=== PATIENT | female | born 2000 | race Caucasian/White ===

== ENCOUNTER 2024-03-04 03:04 | Emergency (ER) | payer MEDICAID ==
[~2024-03-04] VITALS: Ht 162.6 cm; Wt 101.6 kg
[2024-03-04 03:16] VITALS: BP_SYST 127; PULSE 91; RESP 18; TEMP 97.1; O2SAT 97
[2024-03-04] MEDS: KETOROLAC TROMETHAMINE 30 MG VIAL IVP ONE (03:49)
[2024-03-04] MEDS: ONDANSETRON HCL 4 MG/2 ML VIAL IVP ONE (03:50)
[2024-03-04] MEDS: NACL 0.9% 1,000 ML IV ONE ×2 (03:51→04:18)
[2024-03-04 04:18] LABS: BASOPHILS % (AUTO) 0.2 % (0.0-2.0); EOSINOPHILS # (AUTO) 0.1 K/uL (0.0-0.4); HEMATOCRIT 38.1 % (36-48); HEMOGLOBIN 12.9 g/dL (12.0-16.0); LYMPHOCYTES # (AUTO) 1.2 K/uL (1.0-5.5); LYMPHOCYTES % (AUTO) 15.1 % (20.5-51.5); MEAN CORPUSCULAR HEMOGLOBIN 29 pg (27-31); MEAN CORPUSCULAR HGB CONC 34 % (32-36); MEAN CORPUSCULAR VOLUME 85 fL (79.0-98.0); MONOCYTES # (AUTO) 0.6 K/uL (0.0-1.0); MONOCYTES % (AUTO) 6.9 % (1.7-9.3); NEUTROPHILS # (AUTO) 6.2 K/uL (1.8-7.7); NEUTROPHILS % (AUTO) 76.8 % (40.0-70.0); PLATELET COUNT (AUTO) 312 K/uL (130-430); RED BLOOD CELL COUNT(AUTO) 4.51 MIL/uL (4.2-6.2); RED CELL DISTRIBUTION WIDTH 13.4 % (9.0-15.0); WHITE BLOOD COUNT (AUTO) 8.1 K/uL (4.8-10.8)
[2024-03-04 04:22] LABS: BILIRUBIN,URINE 1+ (NEGATIVE); COLOR,URINE YELLOW (YELLOW); GLUCOSE,URINE NEGATIVE (NEGATIVE); KETONES,URINE NEGATIVE (NEGATIVE); LEUKOCYTE ESTERASE ,URINE TRACE (NEGATIVE); NITRITE, URINE NEGATIVE (NEGATIVE); PROTEIN URINE NEGATIVE (NEGATIVE)
[2024-03-04 04:30] LABS: ALBUMIN 3.3 g/dL (3.4-4.8); BILIRUBIN,DIRECT 0.1 mg/dL (0.0-0.3); CALCIUM 8.6 mg/dL (8.4-11.0); CREATININE 0.67 mg/dL (0.55-1.30); POTASSIUM 3.6 mmol/L (3.5-5.1); TOTAL BILIRUBIN 0.4 mg/dL (0.0-1.0); TOTAL PROTEIN, SERUM 7.5 g/dL (6.4-8.3)
[2024-03-04 04:35] LABS: BARBITURATE, URINE NEGATIVE (NEG <=200); BENZODIAZEPINE, URINE NEGATIVE (NEG <=150); CANNABINOID, URINE POSITIVE (NEG <=50); COCAINE, URINE NEGATIVE (NEG <=150); METHAMPHETAMINES SCREEN,URINE NEGATIVE (NEG <=500); OPIATE, URINE NEGATIVE (NEG <=100); PHENCYCLIDINE SCREEN,URINE NEGATIVE (NEG <=25); UR TRICYCLIC ANTIDEPRESSANTS NEGATIVE (NEG <=300); URINE AMPHETAMINE NEGATIVE (NEG <=500); URINE METHADONE NEGATIVE (NEG <=200); URINE OXYCODONE SCREEN NEGATIVE (NEG <=100)
[2024-03-04] MEDS ORDERED: KETO10TA2 PO (04:46)
[2024-03-04] MEDS ORDERED: ONDA-8 TL (04:46)
[2024-03-04 04:51] LABS: BLOOD, URINE TRACE (NEGATIVE); CLARITY/URINE HAZY (CLEAR)
[2024-03-04 04:52] LABS: BACTERIA,URINE FEW /HPF (None Seen)
[2024-03-04] MEDS ORDERED: NITR-85 PO (05:03)
[2024-03-04] MEDS: METOCLOPRAMIDE HCL 10 MG/2 ML VIAL IVP ONE (05:16)
[2024-03-04] MEDS ORDERED: METO-290 PO (05:24)
[2024-03-04 05:32] VITALS: BP_SYST 127; PULSE 91; RESP 18; TEMP 97.1; O2SAT 97
== END 2024-03-04 05:31 | disposition home or self-care (01) ==
LOC: SED 03:04
DX: N39.0 Urinary tract infection, site not specified (principal); R10.13 Epigastric pain; R11.10 Vomiting, unspecified; M79.7 Fibromyalgia; Z90.49 Acquired absence of other specified parts of digestive tract; Z79.899 Other long term (current) drug therapy
CPT/HCPCS: 99284; 96374; 96375; 96361; 80307; 80076; 80048; 81001; 83690; 85025; 87086; 36415; 81025; J1885; J2765; J2405; J7030; 81000; 81015

== ENCOUNTER 2024-06-03 16:50 | Emergency (ER) | payer MEDICAID ==
[~2024-06-03] VITALS: Ht 162.6 cm; Wt 102.1 kg
[~2024-06-03 16:50] MED LIST: KETO10TA2 PO; METO-290 PO; NITR-85 PO
[2024-06-03 17:18] VITALS: BP_SYST 116; PULSE 117; RESP 18; TEMP 98.6; O2SAT 97
[2024-06-03] MEDS: KETOROLAC TROMETHAMINE 30 MG VIAL IVP ONE (18:36)
[2024-06-03] MEDS: NACL 0.9% 1,000 ML IV ONE (18:36)
[2024-06-03] MEDS: ONDANSETRON HCL 4 MG/2 ML VIAL IVP ONE (18:37)
[2024-06-03 18:50] LABS: BASOPHILS # (AUTO) 0.1 K/uL (0.0-0.2); BASOPHILS % (AUTO) 0.6 % (0.0-2.0); EOSINOPHILS % (AUTO) 0.1 % (0.0-4.0); HEMATOCRIT 39.6 % (36-48); HEMOGLOBIN 13.2 g/dL (12.0-16.0); LYMPHOCYTES # (AUTO) 0.6 K/uL (1.0-5.5); LYMPHOCYTES % (AUTO) 4.9 % (20.5-51.5); MEAN CORPUSCULAR HEMOGLOBIN 29 pg (27-31); MEAN CORPUSCULAR HGB CONC 34 % (32-36); MEAN CORPUSCULAR VOLUME 85 fL (79.0-98.0); MONOCYTES # (AUTO) 0.3 K/uL (0.0-1.0); MONOCYTES % (AUTO) 2.4 % (1.7-9.3); NEUTROPHILS # (AUTO) 10.9 K/uL (1.8-7.7); PLATELET COUNT (AUTO) 332 K/uL (130-430); RED BLOOD CELL COUNT(AUTO) 4.64 MIL/uL (4.2-6.2); RED CELL DISTRIBUTION WIDTH 13.5 % (9.0-15.0); WHITE BLOOD COUNT (AUTO) 11.8 K/uL (4.8-10.8)
[2024-06-03 19:39] LABS: SERUM HCG (QUALITATIVE) NEGATIVE (NEGATIVE)
[2024-06-03 19:45] LABS: BILIRUBIN,URINE NEGATIVE (NEGATIVE); BLOOD, URINE 2+ (NEGATIVE); COLOR,URINE YELLOW (YELLOW); GLUCOSE,URINE NEGATIVE (NEGATIVE); KETONES,URINE NEGATIVE (NEGATIVE); LEUKOCYTE ESTERASE ,URINE NEGATIVE (NEGATIVE); NITRITE, URINE NEGATIVE (NEGATIVE); PROTEIN URINE NEGATIVE (NEGATIVE); UROBILINOGEN,URINE 0.2 (0.2-1.0)
[2024-06-03 19:47] LABS: ALBUMIN 3.5 g/dL (3.4-4.8); BILIRUBIN,DIRECT 0.1 mg/dL (0.0-0.3); CALCIUM 8.4 mg/dL (8.4-11.0); CREATININE 0.72 mg/dL (0.55-1.30); POTASSIUM 3.7 mmol/L (3.5-5.1); TOTAL BILIRUBIN 0.5 mg/dL (0.0-1.0); TOTAL PROTEIN, SERUM 7.5 g/dL (6.4-8.3)
[2024-06-03 20:17] LABS: CLARITY/URINE HAZY (CLEAR)
[2024-06-03 20:24] LABS: WBC,URINE 0-3 /HPF (0-3)
[2024-06-03 20:25] LABS: BACTERIA,URINE MODERATE /HPF (None Seen); MUCUS,URINE None Seen /LPF (None Seen)
[2024-06-03] MEDS ORDERED: DICL75TA5 PO (20:35)
[2024-06-03] MEDS ORDERED: NITR-85 PO (20:35)
[2024-06-03] MEDS: NITROFURANTOIN MONOHYD/M-CRYST 100 MG CAPSULE (MacroBID) PO ONE (20:51)
[2024-06-03 20:55] VITALS: BP_SYST 116; PULSE 117; RESP 18; TEMP 98.6; O2SAT 97
== END 2024-06-03 20:55 | disposition home or self-care (01) ==
LOC: SED 16:50
DX: N94.6 Dysmenorrhea, unspecified (principal); N39.0 Urinary tract infection, site not specified
CPT/HCPCS: 99284; 96374; 96361; 96375; 80076; 80048; 81000; 81001; 84703; 83690; 85025; 87086; 36415; 81025; 81015; J1885; J2405; J7030